=== PATIENT | female | born 2000 | race Caucasian/White ===

== ENCOUNTER 2020-08-04 12:43 | Inpatient (IN) | payer OTHER, SELFPAY ==
[2020-08-04] VITALS (23 sets, daily range): BP systolic 78–101; BP diastolic 45–61; PULSE 74–96; RESP 12–24; TEMP 36.9–37.4; O2SAT 94–100; BMI 22.4
[2020-08-04] MEDS: SODIUM CHLORIDE 0.9% 1,000 ML 250 ML IV (13:04)
[2020-08-04] MEDS: INSULIN DRIP PREMIX 100 UNIT/100 ML PLAST..BAG IV (13:05)
[2020-08-04 13:33] LABS: BUN Creatinine Ratio 15.4 (6-22); Blood Urea Nitrogen 12 mg/dL (7-17); Calcium 8.6 mg/dL (8.4-10.2); Chloride 117 mmol/L (98-107); Estimated Glomerular Filt Rate > 60.0 mL/min (>60); Glucose 257 mg/dL (70-100); HEMOLYSIS < 15 (0-50); Magnesium 2.1 mg/dL (1.6-2.3); Phosphorous 1.9 mg/dL (4.5-5.5); Potassium 4.1 mmol/L (3.4-5.1); Sodium 144 mmol/L (137-145)
[2020-08-04 13:56] LABS: Carbon Dioxide 7 mmol/L (22-32)
[2020-08-04] MEDS: DEXTROSE 5%-0.45% NS 1,000 ML 100 ML IV (13:58)
[2020-08-04 14:00] LABS: Fractionated Inspired Oxygen 21; HCO3 ABG 7 mmol/L (22-26); Oxygen Saturation ABG 98 % (95-100); PCO2 ABG 17.4 mmHg (35-45); PO2 ABG 122 mmHg (80-100); TCO2 ABG 7 mmol/L (21-31); pH ABG 7.19 (7.35-7.45)
--- NOTE | 2020-08-04 14:41 | PC.NURSE ---
Direct admit to rm 226 from [facility] at 1220. Pt is AO. Oriented to room/routine, use of call light. Instructed pt to wait for assistance before getting OOB. Pt's mom is at bedside. Insulin gtt infusing at 3 units/hr. NS bolus started per VORB from hospitalist. Insulin gtt remains at 3 units/hr per VORB from hospitalist. Reviewed labs, IVFs, and insulin with hospitalist and received orders to adjust IVF rate and follow DKA protocol for insulin titration. Unable to draw add'l labs or start another IV on pt. Orders received for PICC placement.
[2020-08-04 16:19] LABS: HCO3 VBG 11 mmol/L (23-28); Oxygen Saturation VBG 72 % (70-75); PCO2 VBG 30.8 mmHg (45-50); PO2 VBG 47 mmHg (35-45); Total CO2 VBG 12 mmol/L (24-29); pH VBG 7.17 (7.33-7.43)
[2020-08-04] MEDS: KCL 40 MEQ IN NS 1,000 ML 250 MEQ IV (16:25)
[2020-08-04] MEDS: INSULIN REGULAR 100 UNIT/ML 3 ML VIAL 6 UNIT IV ×2 (16:52→19:22)
[2020-08-04] MEDS: INSULIN DRIP PREMIX 100 UNIT/100 ML PLAST..BAG 6.1 UNIT IV (17:15)
[2020-08-04 17:19] LABS: Lactate (Lactic Acid) 1.3 mmol/L (0.7-2.1)
[2020-08-04 17:20] LABS: BUN Creatinine Ratio 20.7 (6-22); Blood Urea Nitrogen 12 mg/dL (7-17); Calcium 7.7 mg/dL (8.4-10.2); Carbon Dioxide 11 mmol/L (22-32); Chloride 121 mmol/L (98-107); Estimated Glomerular Filt Rate > 60.0 mL/min (>60); Glucose 257 mg/dL (70-100); HEMOLYSIS 27 (0-50); Phosphorous 1.3 mg/dL (4.5-5.5); Potassium 3.6 mmol/L (3.4-5.1); Sodium 141 mmol/L (137-145)
--- NOTE | 2020-08-04 17:40 | P.HP_ITS ---
History of Present Illness History of Present Illness Date Patient Seen: 08/04/20 Time Patient Seen: 12:00 Chief complaint: DKA Narrative: Ms. Adams is a 20W with no significant PMH who is transferred from [facility] for DKA. She has no known history of diabetes. She noticed that she has been feeling nauseaous and dehydrated for a while and started feeling worse with an episode of vomiting and also passed out earlier today. She had noticed that she was feeling weak, was drinking more fluids, peeing frequently. She had no fevers, sob, cough, abdominal pain, diarrhea. Because of this she came in to the ED at [facility]. There workup was which showed n ofever, heart rate in the 100s-120s, respiratory rate in the 20s, normal blood pressure and normal oxygen saturation. Labs notable for CO2 on chemistries less than assay. Anion gap of at least 24, but not able to be calculated as CO2 on chemistry reported as <10. test negative. Initial blood sugar done >700. Initial VBG showed PH of 6.99. She had urine negative for infection. EKG showed sinus tachycardia. She received IV bolus of insulin and then was started on insulin drip. She was given 3L of IV normal saline. She was transferred as no beds available. Upon arrival to the hospital she was feeling much better. Her initial blood sugar was in the 300s. Her insulin on arrival was 3U/hr. She was placed on DKA protocol. Patient History Family & Social History Family History (Updated 08/04/20 @ 17:50 by Alberto Fisher MD) Grandfather Diabetes mellitus Social History: household members spouse Safety & Behavioral: Feels Safe in Current Yes Environment Been Physically Hurt or No Threatened By a Person Suicidal Ideation Description None Tobacco & Substance use: Smoking Status uses vaporized with nicotine containing substance alcohol intake never Substance Use Type does not use Meds Home Medications and Allergies Home Medications Medication Instructions Recorded Confirmed Type No Known Home Medications 08/04/20 08/04/20 History Allergies Allergy/AdvReac Type Severity Reaction Status Date / Time No Known Drug Allergies Allergy Verified 08/04/20 13:55 Review of Systems Review of Systems Narrative: 14 systems reviewed and negative aside from HPI Exam Vital Signs (past 8 hours): - 08/04/20 12:45 08/04/20 13:20 08/04/20 14:00 Temperature 98.4 F 99.3 F 98.6 F Pulse Rate 85 82 82 Respiratory Rate 16 15 16 Blood Pressure 101/61 97/61 99/59 L Pulse Oximetry 100 100 100 08/04/20 15:00 08/04/20 15:16 08/04/20 15:30 Temperature 99.1 F Pulse Rate 80 78 79 Respiratory Rate 14 13 14 Blood Pressure 94/51 L Pulse Oximetry 99 100 100 08/04/20 16:00 08/04/20 16:01 08/04/20 16:30 Temperature Pulse Rate 82 83 83 Respiratory Rate 14 15 14 Blood Pressure 89/55 L 88/54 L Pulse Oximetry 99 99 08/04/20 17:00 Temperature Pulse Rate 88 Respiratory Rate 13 Blood Pressure 92/55 L Pulse Oximetry 100 Oxygen Delivery Method Room Air Oxygen Flow Rate 0 Narrative Exam Narrative: GEN: no acute distress HEENT: dry mucous membranes, PERRL NECK: no JVD, trachea midline CV: regular rate and rhythm, no murmurs PULM: clear bilaterally, no wheezes, rhonchi, rales ABD: soft, nontender, nondistended, no organomegaly, normal bowel sounds EXT: warm and well perfused, no edema NEURO: awake, alert and oriented, no focal deficits SKIN: no rashes noted PSYCH: pleasant, cooperative Objective Labs Result Diagrams: 08/04/20 17:00 08/04/20 17:00 Labs: Laboratory Results - last 24 hr 08/04/20 08/04/20 08/04/20 13:00 13:04 13:12 ABG pH 7.19 L* ABG pCO2 17.4 L* ABG pO2 122 H ABG HCO3 7 L ABG Total CO2 7 L ABG O2 Saturation 98 ABG Base Excess -22.0 L VBG pH VBG pCO2 VBG pO2 VBG HCO3 VBG Total CO2 VBG O2 Saturation VBG Base Excess FiO2 21 Sodium 144 Potassium 4.1 Chloride 117 H Carbon Dioxide 7 L* BUN 12 Creatinine 0.78 Estimated GFR > 60.0 BUN/Creatinine Ratio 15.4 Glucose 257 H Lactate Calcium 8.6 Phosphorus 1.9 L Magnesium 2.1 Nasal Screen MRSA (PCR) Negative for mrsa 08/04/20 08/04/20 08/04/20 16:05 17:00 17:00 ABG pH ABG pCO2 ABG pO2 ABG HCO3 ABG Total CO2 ABG O2 Saturation ABG Base Excess VBG pH 7.17 L* VBG pCO2 30.8 L VBG pO2 47 H VBG HCO3 11 L VBG Total CO2 12 L VBG O2 Saturation 72 VBG Base Excess -17.0 L FiO2 Sodium 141 Potassium 3.6 Chloride 121 H Carbon Dioxide 11 L BUN 12 Creatinine 0.58 Estimated GFR > 60.0 BUN/Creatinine Ratio 20.7 Glucose 257 H Lactate 1.3 Calcium 7.7 L Phosphorus Magnesium Nasal Screen MRSA (PCR) 08/04/20 17:00 ABG pH ABG pCO2 ABG pO2 ABG HCO3 ABG Total CO2 ABG O2 Saturation ABG Base Excess VBG pH VBG pCO2 VBG pO2 VBG HCO3 VBG Total CO2 VBG O2 Saturation VBG Base Excess FiO2 Sodium Potassium Chloride Carbon Dioxide BUN Creatinine Estimated GFR BUN/Creatinine Ratio Glucose Lactate Calcium Phosphorus 1.3 L Magnesium Nasal Screen MRSA (PCR) Assessment & Plan Assessment & Plan narrative: Ms. Adams is a 20W with no known past medical history who presented with DKA. 1. Diabetic ketoacidosis, acute -initial blood sugar >700, had anion gap >24, co2 less than assay, vbg ph 6.99 -started on insulin, currently on dka protocol for insulin drip -currently volume depleted on 250cc/hr normal saline -plan to follow protocol for potassium repletion, insulin dose adjustment, fluid adjustment -trend vbg and bmp q4 hours while on drip and while still in DKA -dietary consult for new diabetes -midline as patient has poor access DIET: NPO IVF: per DKA protocol DVT ppx: lovenox sc Code: Full, proxy is Juan Lopez her , who is currently in [place], if not able to contact can contact moody ham Quality MIPS - Admit I confirm the patient?s Advance Care Plan is present, Code status is documented, Surrogate decision maker is in patient?s record [If Yes, STOP here]: Yes
[2020-08-04] MEDS: DEXTROSE 10 % IN WATER 1,000 ML 61 ML IV (21:14)
[2020-08-04 21:16] LABS: Blood Urea Nitrogen 12 mg/dL (7-17); Calcium 7.9 mg/dL (8.4-10.2); Carbon Dioxide 14 mmol/L (22-32); Estimated Glomerular Filt Rate > 60.0 mL/min (>60); Glucose 129 mg/dL (70-100); HEMOLYSIS < 15 (0-50); Potassium 3.5 mmol/L (3.4-5.1); Sodium 144 mmol/L (137-145)
[2020-08-04 21:22] LABS: HCO3 VBG 12 mmol/L (23-28); Oxygen Saturation VBG 87 % (70-75); PCO2 VBG 30.9 mmHg (45-50); PO2 VBG 63 mmHg (35-45); Total CO2 VBG 13 mmol/L (24-29)
[2020-08-04 21:23] LABS: pH VBG 7.21 (7.33-7.43)
[2020-08-04 21:35] LABS: Chloride 125 mmol/L (98-107)
[2020-08-04] MEDS: SODIUM CHLORIDE 0.9% FLUSH 10 ML IV (21:53)
[2020-08-04] MEDS: DEXTROSE 5%-0.45% NS 1,000 ML 91.5 ML IV (22:11)
[2020-08-04 22:21] LABS: Phosphorous 0.6 mg/dL (4.5-5.5)
[2020-08-05] VITALS (32 sets, daily range): BP systolic 78–105; BP diastolic 43–68; PULSE 74–93; RESP 13–22; TEMP 36.6–37.2; O2SAT 96–100
[2020-08-05] MEDS: ACETAMINOPHEN 325 MG TABLET 650 MG PO (00:14)
[2020-08-05] MEDS: ONDANSETRON 4 MG/2 ML INJ IV (00:14)
[2020-08-05] MEDS: POTASSIUM PHOSPHATE 10 MMOL in SODIUM CHLORIDE 0.9% 1,000 ML 100 MMOL IV (00:25)
[2020-08-05 01:36] LABS: HCO3 VBG 12 mmol/L (23-28); Oxygen Saturation VBG 74 % (70-75); PO2 VBG 46 mmHg (35-45); Total CO2 VBG 13 mmol/L (24-29); pH VBG 7.22 (7.33-7.43)
[2020-08-05 01:37] LABS: Phosphorous 1.2 mg/dL (4.5-5.5)
[2020-08-05 01:38] LABS: BUN Creatinine Ratio 18.8 (6-22); Blood Urea Nitrogen 12 mg/dL (7-17); Calcium 8.1 mg/dL (8.4-10.2); Carbon Dioxide 12 mmol/L (22-32); Chloride 121 mmol/L (98-107); Estimated Glomerular Filt Rate > 60.0 mL/min (>60); Glucose 149 mg/dL (70-100); HEMOLYSIS < 15 (0-50); Potassium 3.5 mmol/L (3.4-5.1); Sodium 141 mmol/L (137-145)
[2020-08-05 05:30] LABS: Blood Urea Nitrogen 12 mg/dL (7-17); Carbon Dioxide 11 mmol/L (22-32); Chloride 120 mmol/L (98-107); Estimated Glomerular Filt Rate > 60.0 mL/min (>60); Glucose 234 mg/dL (70-100); HEMOLYSIS < 15 (0-50); Sodium 139 mmol/L (137-145)
[2020-08-05 05:31] LABS: Phosphorous 2.1 mg/dL (4.5-5.5)
[2020-08-05 06:21] LABS: Add Manual Diff / Slide Review NO; Basophils Absolute Auto 0 /uL (0-100); Basophils Percent Auto 0.3 % (0-2); Eosinophils Absolute Auto 100 /uL (0-450); Eosinophils Percent Auto 0.7 % (2-4); Hematocrit 32.5 % (36-46); Lymphocytes Absolute Auto 2000 /uL (1100-4500); Mean Corpuscular Hemoglobin 31.9 PG (26-34); Mean Corpuscular Volume 93.7 fL (80-100); Monocytes Absolute Auto 600 /uL (0-900); Monocytes Percent Auto 6.7 % (3-14); Neutrophils Absolute Auto 5800 /uL (1500-7000); Neutrophils Percent Auto 68.3 % (50-75); Platelet Count 162 X10^3/uL (150-400); Red Blood Cell Count 3.46 X10^6/uL (4.0-5.2); Red Cell Distribution Width 14.6 % (11.6-14.8); White Blood Cell Count 8.5 X10^3/uL (4.5-11.0)
[2020-08-05 06:42] LABS: HCO3 VBG 12 mmol/L (23-28); Oxygen Saturation VBG 78 % (70-75); PCO2 VBG 30.4 mmHg (45-50); PO2 VBG 51 mmHg (35-45); Total CO2 VBG 12 mmol/L (24-29); pH VBG 7.19 (7.33-7.43)
[2020-08-05] MEDS: DEXTROSE 5%-0.45% NS 1,000 ML 91.5 ML IV ×3 (06:48→16:47)
[2020-08-05 07:02] LABS: Hemoglobin A1C% w Est Avg Glu 12.6 % (4.0-6.0)
[2020-08-05 09:33] LABS: BUN Creatinine Ratio 17.2 (6-22); Blood Urea Nitrogen 10 mg/dL (7-17); Carbon Dioxide 14 mmol/L (22-32); Chloride 121 mmol/L (98-107); Estimated Glomerular Filt Rate > 60.0 mL/min (>60); Glucose 191 mg/dL (70-100); HEMOLYSIS < 15 (0-50); Potassium 3.4 mmol/L (3.4-5.1); Sodium 139 mmol/L (137-145)
[2020-08-05] MEDS: POTASSIUM CHLORIDE IN WATER 10 MEQ/100 ML PIGGYBACK 100 MEQ IV ×7 (10:26→22:57)
[2020-08-05 10:27] LABS: PCO2 VBG 27.5 mmHg (45-50); PO2 VBG 43 mmHg (35-45); pH VBG 7.28 (7.33-7.43)
[2020-08-05] MEDS: ENOXAPARIN 40 MG/0.4 ML SYRINGE SUBCUT (10:27)
[2020-08-05] MEDS: SODIUM CHLORIDE 0.9% FLUSH 10 ML IV ×2 (10:27→22:57)
[2020-08-05 10:28] LABS: Oxygen Saturation VBG 74 % (70-75)
[2020-08-05 10:30] LABS: HCO3 VBG 13 mmol/L (23-28)
[2020-08-05] MEDS: INSULIN DRIP PREMIX 100 UNIT/100 ML PLAST..BAG 6.1 UNIT IV (12:31)
--- NOTE | 2020-08-05 13:48 | CM.DANOTE ---
DCP ASSESSMENT: Patient is a 20 year-old female admitted for DKA. PCP doctors are at [facility]. Primary payer is [employer] [facility]. CORRESPONDENCE SECTION SUPERVISOR Student met with patient at bedside she was alert and oriented. Her Juan Lopez was present also. Educated patient of social work role in discharge planning. Patient is independent at baseline. She and her are in the area for a vacation at his grandmother?s house. will provide transportation at time of D/C. PLAN: Anticipate home when medically stable. CM Team to continue to follow. HIEU Sanz MSW Student Discharge Planning/Care Management CM Discharge Assessment Start: 08/05/20 10:44 Freq: Status: Active Protocol: Document 08/05/20 10:44 AL (Rec: 08/05/20 10:46 AL [id number]) Discharge Planning Assessment Assigned Biologics Specialist HIEU Zapata Student Contact Information Juan Lopez, [phone] Advance Directives? No History Provided By Patient,Medical Record Has Patient been admitted in last 30 No days? Prior Living Arrangements Apartment/Condo Household Members spouse Type of transporation used prior to Drives own vehicle admit Independent with ADL's Yes Is patient alert and oriented? Yes Caregiver for Another No Barriers to Discharge No Discharge Plan Home Transportation Arrangement Juan Lopez will provide transportation at time of D/C Referrals Initiated None needed Whiteboard Updated in Patient Room with Yes name and ext. # of Biologics Specialist Review Status In Process
[2020-08-05 14:55] LABS: BUN Creatinine Ratio 12.7 (6-22); Blood Urea Nitrogen 8 mg/dL (7-17); Calcium 8.2 mg/dL (8.4-10.2); Carbon Dioxide 12 mmol/L (22-32); Chloride 116 mmol/L (98-107); Estimated Glomerular Filt Rate > 60.0 mL/min (>60); Glucose 275 mg/dL (70-100); HEMOLYSIS < 15 (0-50); Potassium 4.4 mmol/L (3.4-5.1); Sodium 135 mmol/L (137-145)
[2020-08-05] MEDS: SODIUM CHLORIDE 0.9% 1,000 ML 100 ML IV (15:00)
--- NOTE | 2020-08-05 15:55 | PM.PN.1 ---
Subjective Subjective Date Patient Seen: 08/05/20 Time Patient Seen: 13:30 Interval history: this is a 20-year-old female admitted with a new diagnosis of diabetes and diabetic ketoacidosis. She remains acidotic today, although her gap has closed but her bicarb remains low. Her bicarb had improved to 14, however repeat check after showed a decline to 12. Her insulin infusion may have been leaking, her blood glucose also peaked. She was quite hungry and was given a no carbohydrate diet While on insulin infusion. She will remain on insulin infusion, until her bicarb is consistently above 16. She had some foul-smelling urine, urinalysis was negative on admission the patient has no dysuria or urinary frequency. She denies any vaginal bleeding or discharge, she has had no fever, chest pain, shortness of breath, cough, abdominal pain, nausea, or vomiting. Exam Vital Signs (past 8 hours): - 08/05/20 08:00 08/05/20 08:55 08/05/20 09:00 Temperature 98.4 F 98.3 F Pulse Rate 83 76 86 Respiratory Rate 16 14 15 Blood Pressure 90/52 L 96/52 L Pulse Oximetry 96 08/05/20 09:55 08/05/20 10:00 08/05/20 11:00 Temperature 98.2 F 97.8 F Pulse Rate 77 74 84 Respiratory Rate 14 13 16 Blood Pressure 89/55 L 86/52 L Pulse Oximetry 100 100 100 08/05/20 12:00 08/05/20 13:00 08/05/20 14:00 Temperature 98.9 F 98.8 F 98.7 F Pulse Rate 79 81 82 Respiratory Rate 18 18 16 Blood Pressure 90/48 L 98/58 L 92/56 L Pulse Oximetry 97 100 100 Oxygen Delivery Method Room Air Oxygen Flow Rate 0 Narrative Exam Narrative: GEN: no acute distress HEENT: dry mucous membranes, PERRL NECK: no JVD, trachea midline CV: regular rate and rhythm, no murmurs PULM: clear bilaterally, no wheezes, rhonchi, rales ABD: soft, nontender, nondistended, no organomegaly, normal bowel sounds EXT: warm and well perfused, no edema NEURO: awake, alert and oriented, no focal deficits SKIN: no rashes noted PSYCH: pleasant, cooperative Objective Labs Result Diagrams: 08/05/20 05:00 08/05/20 14:30 Labs: Laboratory Results - last 24 hr 08/04/20 08/04/20 08/04/20 16:05 17:00 17:00 WBC RBC Hgb Hct MCV MCH MCHC RDW Plt Count Neut % (Auto) Lymph % (Auto) Kay % (Auto) Eos % (Auto) Baso % (Auto) Neut # (Auto) Lymph # (Auto) Kay # (Auto) Eos # (Auto) Baso # (Auto) VBG pH 7.17 L* VBG pCO2 30.8 L VBG pO2 47 H VBG HCO3 11 L VBG Total CO2 12 L VBG O2 Saturation 72 VBG Base Excess -17.0 L Sodium 141 Potassium 3.6 Chloride 121 H Carbon Dioxide 11 L BUN 12 Creatinine 0.58 Estimated GFR > 60.0 BUN/Creatinine Ratio 20.7 Glucose 257 H Hemoglobin A1c Lactate 1.3 Calcium 7.7 L Phosphorus 08/04/20 08/04/20 08/04/20 17:00 20:59 21:00 WBC RBC Hgb Hct MCV MCH MCHC RDW Plt Count Neut % (Auto) Lymph % (Auto) Kay % (Auto) Eos % (Auto) Baso % (Auto) Neut # (Auto) Lymph # (Auto) Kay # (Auto) Eos # (Auto) Baso # (Auto) VBG pH 7.21 L VBG pCO2 30.9 L VBG pO2 63 H VBG HCO3 12 L VBG Total CO2 13 L VBG O2 Saturation 87 H VBG Base Excess -16.0 L Sodium 144 Potassium 3.5 Chloride 125 H* Carbon Dioxide 14 L BUN 12 Creatinine 0.60 Estimated GFR > 60.0 BUN/Creatinine Ratio 20.0 Glucose 129 H D Hemoglobin A1c Lactate Calcium 7.9 L Phosphorus 1.3 L 0.6 L* 08/05/20 08/05/20 08/05/20 01:20 01:20 01:20 WBC RBC Hgb Hct MCV MCH MCHC RDW Plt Count Neut % (Auto) Lymph % (Auto) Kay % (Auto) Eos % (Auto) Baso % (Auto) Neut # (Auto) Lymph # (Auto) Kay # (Auto) Eos # (Auto) Baso # (Auto) VBG pH 7.22 L VBG pCO2 29.0 L VBG pO2 46 H VBG HCO3 12 L VBG Total CO2 13 L VBG O2 Saturation 74 VBG Base Excess -16.0 L Sodium 141 Potassium 3.5 Chloride 121 H Carbon Dioxide 12 L BUN 12 Creatinine 0.64 Estimated GFR > 60.0 BUN/Creatinine Ratio 18.8 Glucose 149 H Hemoglobin A1c Lactate Calcium 8.1 L Phosphorus 1.2 L 08/05/20 08/05/20 08/05/20 05:00 05:00 05:00 WBC 8.5 RBC 3.46 L Hgb 11.0 L Hct 32.5 L MCV 93.7 MCH 31.9 MCHC 34.0 RDW 14.6 Plt Count 162 Neut % (Auto) 68.3 Lymph % (Auto) 24.0 L Kay % (Auto) 6.7 Eos % (Auto) 0.7 L Baso % (Auto) 0.3 Neut # (Auto) 5800 Lymph # (Auto) 2000 Kay # (Auto) 600 Eos # (Auto) 100 Baso # (Auto) 0 VBG pH VBG pCO2 VBG pO2 VBG HCO3 VBG Total CO2 VBG O2 Saturation VBG Base Excess Sodium 139 Potassium 4.0 Chloride 120 H Carbon Dioxide 11 L BUN 12 Creatinine 0.63 Estimated GFR > 60.0 BUN/Creatinine Ratio 19.0 Glucose 234 H Hemoglobin A1c Lactate Calcium 8.0 L Phosphorus 2.1 L 08/05/20 08/05/20 08/05/20 05:00 05:05 09:10 WBC RBC Hgb Hct MCV MCH MCHC RDW Plt Count Neut % (Auto) Lymph % (Auto) Kay % (Auto) Eos % (Auto) Baso % (Auto) Neut # (Auto) Lymph # (Auto) Kay # (Auto) Eos # (Auto) Baso # (Auto) VBG pH 7.19 L* VBG pCO2 30.4 L VBG pO2 51 H VBG HCO3 12 L VBG Total CO2 12 L VBG O2 Saturation 78 H VBG Base Excess -17.0 L Sodium 139 Potassium 3.4 Chloride 121 H Carbon Dioxide 14 L BUN 10 Creatinine 0.58 Estimated GFR > 60.0 BUN/Creatinine Ratio 17.2 Glucose 191 H Hemoglobin A1c 12.6 H Lactate Calcium 8.0 L Phosphorus 08/05/20 08/05/20 10:12 14:30 WBC RBC Hgb Hct MCV MCH MCHC RDW Plt Count Neut % (Auto) Lymph % (Auto) Kay % (Auto) Eos % (Auto) Baso % (Auto) Neut # (Auto) Lymph # (Auto) Kay # (Auto) Eos # (Auto) Baso # (Auto) VBG pH 7.28 L VBG pCO2 27.5 L VBG pO2 43 VBG HCO3 13 L VBG Total CO2 13 L VBG O2 Saturation 74 VBG Base Excess -14.0 L Sodium 135 L Potassium 4.4 Chloride 116 H Carbon Dioxide 12 L BUN 8 Creatinine 0.63 Estimated GFR > 60.0 BUN/Creatinine Ratio 12.7 Glucose 275 H Hemoglobin A1c Lactate Calcium 8.2 L Phosphorus [facility] Family History (Updated 08/04/20 @ 17:50 by Alberto Fisher MD) Grandfather Diabetes mellitus Social History household members: spouse Smoking Status: Never smoker alcohol intake: never Assessment & Plan Assessment & Plan narrative: Ms. Adams is a 20F with no known past medical history who presented with DKA. 1. Diabetic ketoacidosis, acute -initial blood sugar >700, had anion gap >24, co2 less than assay, vbg ph 6.99 -started on insulin, currently on dka protocol for insulin drip, nearing resolution but with current NAGMA likely due improving DKA. -continue fluids and insulin infusion until bicarb > 16. -plan to follow protocol for potassium repletion, insulin dose adjustment, fluid adjustment -trend vbg and bmp q4 hours while on drip and while still in DKA -dietary consult for new diabetes -midline as patient has poor access -A1c 12.6%. possibly new type 1, will discharge on basal bolus therapy. -STOCK BROKER consultation as patient is in the and will assist with community resources. DIET: No carbohydrate diet IVF: per DKA protocol DVT ppx: lovenox sc Code: Full, proxy is Juan Lopez her , who is currently in [place], if not able to contact can contact moody ham I spent 35 minutes providing critical care management this patient. This excludes time spent in performing separately billed procedures.
[2020-08-05] MEDS: DEXTROSE 5%-0.45% NS 1,000 ML 125 ML IV (18:55)
--- NOTE | 2020-08-05 19:03 | PC.NURSE ---
Evening Shift Note: Pt is alert and oriented, denies pain. Pt is on RA, SPO2 99%. Denies SOB. Lungs CTA. Pt with VSS, pt reports that her hands and feet are swollen, mild generalized edema. Pt denies nausea, tolerating no carb diet. BG 148 at last check. Pt remainson insulin gtts, initially at 9.1 units/hr, then at 6.1 units/hr thereafter. Dr. Ferrara wished to keep pt's insulin gtts running at 6.1 units/hr and increase dextrose IV to compensate. Will recheck BG q 1 hour per protocol and check in with MD if needed for further instruction re insulin gtts. Call light within reach, pt using appropriately for assistance. Will continue to monitor, notify MD with changes.
[2020-08-05 21:11] LABS: BUN Creatinine Ratio 21.7 (6-22); Blood Urea Nitrogen 15 mg/dL (7-17); Calcium 8.1 mg/dL (8.4-10.2); Carbon Dioxide 18 mmol/L (22-32); Chloride 113 mmol/L (98-107); Estimated Glomerular Filt Rate > 60.0 mL/min (>60); Glucose 107 mg/dL (70-100); HEMOLYSIS < 15 (0-50); Potassium 3.2 mmol/L (3.4-5.1); Sodium 135 mmol/L (137-145)
[2020-08-06] VITALS (19 sets, daily range): BP systolic 90–111; BP diastolic 56–65; PULSE 73–92; RESP 10–82; TEMP 36.1–37.4; O2SAT 91–100
[2020-08-06] MEDS: POTASSIUM CHLORIDE IN WATER 10 MEQ/100 ML PIGGYBACK 100 MEQ IV ×9 (00:08→13:00)
[2020-08-06 00:35] LABS: BUN Creatinine Ratio 23.6 (6-22); Blood Urea Nitrogen 13 mg/dL (7-17); Carbon Dioxide 20 mmol/L (22-32); Chloride 111 mmol/L (98-107); Estimated Glomerular Filt Rate > 60.0 mL/min (>60); Glucose 115 mg/dL (70-100); HEMOLYSIS < 15 (0-50); Potassium 3.1 mmol/L (3.4-5.1); Sodium 134 mmol/L (137-145)
[2020-08-06 05:21] LABS: HCO3 VBG 20 mmol/L (23-28); Oxygen Saturation VBG 60 % (70-75); PCO2 VBG 37.1 mmHg (45-50); PO2 VBG 33 mmHg (35-45); Total CO2 VBG 21 mmol/L (24-29); pH VBG 7.34 (7.33-7.43)
[2020-08-06 05:27] LABS: Blood Urea Nitrogen 10 mg/dL (7-17); Calcium 8.4 mg/dL (8.4-10.2); Carbon Dioxide 21 mmol/L (22-32); Chloride 111 mmol/L (98-107); Estimated Glomerular Filt Rate > 60.0 mL/min (>60); Glucose 143 mg/dL (70-100); HEMOLYSIS < 15 (0-50); Potassium 3.2 mmol/L (3.4-5.1); Sodium 135 mmol/L (137-145)
[2020-08-06 06:17] LABS: Albumin 2.5 g/dL (3.5-5.0)
[2020-08-06] MEDS: POTASSIUM CHLORIDE 20 MEQ TAB 40 MEQ PO (06:35)
--- NOTE | 2020-08-06 07:35 | PC.NURSE ---
Help Desk Administrator Note-Patient has on insulin gtt throughout the night, rate 1.2-4.8, CBG 125-173, see flow sheet. SR, VSS, denies pain or nausea. 40meq K+ rider overnight, D5 1/2NS @ 125ml/hr.
[2020-08-06] MEDS: INSULIN GLARGINE 100 UNIT/ML 3ML PEN 25 UNIT SUBCUT (08:14)
[2020-08-06] MEDS: INSULIN LISPRO 100 UNIT/ML 3ML VIAL SUBCUT ×4 (08:18→17:19)
[2020-08-06] MEDS: SODIUM CHLORIDE 0.9% FLUSH 10 ML IV ×2 (08:32→21:37)
--- NOTE | 2020-08-06 12:53 | DIET.PN ---
Dietary Progress Note Assessment: 20y F admitted for DKA as transfer from [facility] referred to nutrition for inpatient Diabetes nutrition education. HT: 165.1cm WT: 61kg BMI: 22.4 Labs: admit BG >700, A1c 12.6, VBG pH 6.99, Anion Gap 24 Nutrition Diagnosis: altered nutrition related laboratory values r/t endocrine dysfunction aeb pt admitted c DKA and no known hx Diabetes c admit BG >700, A1c 12.6, VBG pH 6.99, anion gap 24. Interventions: 1. Educated pt on BG, A1c, how the tests are preformed and what they mean using drawn diagram and answering pt questions. 2. Using DSME book 1, educated pt on sx of hypo and hyperglycemia, educated on carbohydrate content of foods and carb counting with examples. 3. Using patient menu, discussed carb counts of a variety of options and how to modify meals to fit within carb levels. Diet Order: CCD3 EER: 30-45g CHO per meal, 15-30g CHO for snacks Monitoring/Evaluations: f/u teaching this afternoon
--- NOTE | 2020-08-06 16:04 | CM.DPC ---
DCP Continued: HIEU Student met with patient and at bedside in am. Patient is aware of her new diabetes diagnosis. 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 Inquired if she would like any other assistance at this time. She and her feel they are doing okay at this time and also, have family supports. PLAN: Anticipate D/C home. CM Team to continue to follow. HIEU Sanz MSW Student
--- NOTE | 2020-08-06 17:02 | P.PN_ITS ---
Subjective Subjective Date Patient Seen: 08/06/20 Time Patient Seen: 17:03 Interval history: This is a 20-year-old female admitted with diabetic ketoacidosis. She was taken off of her insulin infusion this morning, and started on basal and mealtime insulin today. She has only had 2 blood sugar since being taken off of her insulin infusion. She denies any chest pain, shortness of breath, abdominal pain, nausea, vomiting. She is tolerating a diet. Exam Vital Signs (past 8 hours): - 08/06/20 09:30 08/06/20 12:00 08/06/20 15:38 Temperature 97.9 F 98.2 F Pulse Rate 92 H 76 Respiratory Rate 17 17 82 H Blood Pressure 93/63 106/65 Pulse Oximetry 99 99 99 Oxygen Delivery Method Room Air Oxygen Flow Rate 0 Narrative Exam Narrative: GEN: no acute distress HEENT: MMM, PERRL NECK: no JVD, trachea midline CV: regular rate and rhythm, no murmurs PULM: clear bilaterally, no wheezes, rhonchi, rales ABD: soft, nontender, nondistended, no organomegaly, normal bowel sounds EXT: warm and well perfused, no edema NEURO: awake, alert and oriented, no focal deficits SKIN: no rashes noted PSYCH: pleasant, cooperative Objective Labs Result Diagrams: 08/05/20 05:00 08/06/20 05:00 Labs: Laboratory Results - last 24 hr 08/05/20 08/06/20 08/06/20 20:00 00:15 05:00 VBG pH VBG pCO2 VBG pO2 VBG HCO3 VBG Total CO2 VBG O2 Saturation VBG Base Excess Sodium 135 L 134 L 135 L Potassium 3.2 L D 3.1 L 3.2 L Chloride 113 H 111 H 111 H Carbon Dioxide 18 L 20 L 21 L BUN 15 13 10 Creatinine 0.69 0.55 0.50 L Estimated GFR > 60.0 > 60.0 > 60.0 BUN/Creatinine Ratio 21.7 23.6 H 20.0 Glucose 107 H D 115 H 143 H Calcium 8.1 L 8.0 L 8.4 Albumin 08/06/20 08/06/20 05:00 05:08 VBG pH 7.34 VBG pCO2 37.1 L VBG pO2 33 L VBG HCO3 20 L VBG Total CO2 21 L VBG O2 Saturation 60 L VBG Base Excess -6.0 L Sodium Potassium Chloride Carbon Dioxide BUN Creatinine Estimated GFR BUN/Creatinine Ratio Glucose Calcium Albumin 2.5 L PFSH Family History (Updated 08/04/20 @ 17:50 by Alberto Fisher MD) Grandfather Diabetes mellitus Social History household members: spouse Smoking Status: Never smoker alcohol intake: never Assessment & Plan Assessment & Plan narrative: Ms. Adams is a 20F with no known past medical history who presented with DKA. 1. Diabetic ketoacidosis, acute, likely type I new diagnosis. -initial blood sugar >700, had anion gap >24, co2 less than assay, vbg ph 6.99 -started on insulin infusion, had prolonged NAGMA delaying cessation of insulin infusion until this AM, HD#2. -now on a diet, started on lantus 25 U daily with 5 U AC and medium sliding scale. Will need to adjust further. -dietary consult for new diabetes -midline placed as patient has poor access -A1c 12.6%. possibly new type 1, less likely type 2 at this time but not impossible, will discharge on basal bolus therapy. 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 -TRANSPORTATION MAINTENANCE SUPERVISOR consultation as patient is in the and will assist with community resources. DIET: consistenet carbohydrate diet IVF: now discontinued DVT ppx: lovenox sc Code: Full, proxy is Juan Lopez her , who is currently in [place], if not able to contact can contact moody Duong jitendra\ Dispo: probable discharge home tomorrow if sugars controlled on basal bolus therapy. Patient will follow up in [place] with PCP and recommend endocrine referral. She can be listed for regular floor today. I spent 35 minutes providing critical care management this patient. This excludes time spent in performing separately billed procedures.
[2020-08-06 20:26] LABS: Total CO2 VBG 14 mmol/L (24-29)
[2020-08-07 05:00] VITALS: BP 103/52; PULSE 76; RESP 15; TEMP 36.4; O2SAT 98
[2020-08-07] MEDS: INSULIN GLARGINE 100 UNIT/ML 3ML PEN 25 UNIT SUBCUT (08:57)
[2020-08-07] MEDS: INSULIN LISPRO 100 UNIT/ML 3ML VIAL SUBCUT ×2 (08:58)
--- NOTE | 2020-08-07 08:59 | PM.DS.1 ---
History of Present Illness History of Present Illness Date Patient Seen: 08/07/20 Time Patient Seen: 09:00 Chief complaint: DKA Narrative: Ms. Adams is a 20W with no significant PMH who is transferred from [facility] for DKA. She has no known history of diabetes. She noticed that she has been feeling nauseaous and dehydrated for a while and started feeling worse with an episode of vomiting and also passed out earlier today. She had noticed that she was feeling weak, was drinking more fluids, peeing frequently. She had no fevers, sob, cough, abdominal pain, diarrhea. Because of this she came in to the ED at [facility]. There workup was which showed n ofever, heart rate in the 100s-120s, respiratory rate in the 20s, normal blood pressure and normal oxygen saturation. Labs notable for CO2 on chemistries less than assay. Anion gap of at least 24, but not able to be calculated as CO2 on chemistry reported as <10. test negative. Initial blood sugar done >700. Initial VBG showed PH of 6.99. She had urine negative for infection. EKG showed sinus tachycardia. She received IV bolus of insulin and then was started on insulin drip. She was given 3L of IV normal saline. She was transferred as no beds available. Upon arrival to the hospital she was feeling much better. Her initial blood sugar was in the 300s. Her insulin on arrival was 3U/hr. She was placed on DKA protocol. Discharge Providers Provider Date of admission: 08/04/20 12:43 Discharge Date: 08/07/20 Consults: 08/04/20 18:00 Consult to Dietitian, Adult Routine Comment: Reason For Exam: new diagnosis of diabetes, DKA 08/05/20 13:55 [place] [facility] [place]ine [place] [facility] [place] [facility] Need Discharge provider: Stephen Ferrara DO Summary Hospital Course Discharge Diagnosis: 1. Diabetic ketoacidosis, acute, likely type I new diagnosis. Hospital Course: Ms. Adams is a 20F with no known past medical history who presented with DKA. Her initial blood sugar was over 700 she had an anion gap of greater than 24, and a bicarb less than assay with a pH of 6.99. She was started on an insulin infusion, but had a prolonged non anion gap metabolic acidosis after resolution of her anion gap which delayed cessation of her insulin infusion until hospital day 2. She was then started on basal bolus therapy with blood sugars generally between 102 100. Her Lantus was increased to 30 units in the morning with 5 units at meals on the day of discharge. She will need further adjustment with a primary care provider as soon as possible. Her A1c was 12.6. MYKE 65 and islet cell antibodies were sent as the diagnosis is not exactly clear and her job as an [employer] will depend on if she is insulin dependent or not, though this is likely type 1 diabetes based on presentation. 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 Patient was tolerating a diet and her sugars were controlled on the day of discharge. She is highly recommended to follow-up with her primary care provider as soon as possible closer to her home in [place]. Time Spent with Patient Time spent: Greater than 30 minutes Exam Vital Signs (past 8 hours): - 08/07/20 05:00 Temperature 97.5 F L Pulse Rate 76 Respiratory Rate 15 Blood Pressure 103/52 L Pulse Oximetry 98 Oxygen Delivery Method Room Air Oxygen Flow Rate 0 Narrative Exam Narrative: GEN: no acute distress HEENT: MMM, PERRL NECK: no JVD, trachea midline CV: regular rate and rhythm, no murmurs PULM: clear bilaterally, no wheezes, rhonchi, rales ABD: soft, nontender, nondistended, no organomegaly, normal bowel sounds EXT: warm and well perfused, no edema NEURO: awake, alert and oriented, no focal deficits SKIN: no rashes noted PSYCH: pleasant, cooperative Objective Labs Result Diagrams: 08/05/20 05:00 08/06/20 05:00 Labs: Laboratory Results - last 24 hr 08/05/20 10:12 VBG Total CO2 14 L PFSH Family History (Updated 08/04/20 @ 17:50 by Alberto Fisher MD) Grandfather Diabetes mellitus Social History household members: spouse Smoking Status: Never smoker alcohol intake: never Discharge Plan Discharge Plan Patient Disposition: Home Provider Discharge Comment: You were admitted to the hospital with diabetic ketoacidosis. This happens when your body lacks insulin. You probably have type 1 diabetes, antibodies were sent but this can take some time to return. Please follow up with your PCP as soon as possible, ideally before the end of the week. Please keep a log of your blood sugars, try to test in the AM, before each meal, and before bed to help titrate your insulin. If your blood sugar is over 300 please take an additional 5 units of short acting insulin to try and decrease. Discharge orders & Medications Prescriptions: New insulin glargine 100 unit/mL (3 mL) insulin pen 30 unit SUBCUT QAM 30 Days Qty: 9 RF: 0 insulin lispro 100 unit/mL insulin pen 5 unit SUBCUT TID 30 Days Qty: 9 RF: 0 (DME) pen needle, diabetic [Pen Needle] 31 gauge x 3/16 needle See Rx Instructions .Route Qty: 200 RF: 0 (DME) blood-glucose meter Kit See Rx Instructions .Route Qty: 1 RF: 0 (DME) Blood Glucose Test Strip See Rx Instructions .Route Qty: 200 RF: 0 (DME) lancets 31 gauge misc See Rx Instructions .Route Qty: 100 RF: 0 Glucagon Emergency Kit (human) 1 mg recon soln 1 mg IM Q20M PRN (Reason: hypoglycemia) 30 Days Qty: 1 RF: 0 Medication counseling provided by Pharmacist: Yes Pharmacist Comment: Went over her insulin regimen again. Discussed how to manage hypoglycemia. Stressed the importance of establishing a PCP and [place] clinic. Diet/Activity/Treatments Diet: Diet as Tolerated and Carb-consistent/Diabetic Activity: As tolerated Visit Report/Discharge Packet Instructions: How to Check Your Blood Glucose, Learn Your Diabetic ABCs, Low Glycemic Index Diets (Alternative Therapy), Low-Carbohydrate Diet (Alternative Therapy), Type 1 Diabetes, DI for Diabetes Type 1 -- Adult, How to Use an Insulin Pen
[2020-08-07] MEDS: ENOXAPARIN 40 MG/0.4 ML SYRINGE SUBCUT (09:00)
[2020-08-07] MEDS: SODIUM CHLORIDE 0.9% FLUSH 10 ML IV (09:00)
[2020-08-07 09:10] VITALS: BP 116/69; PULSE 83; RESP 16; TEMP 37.3; O2SAT 98
--- NOTE | 2020-08-07 11:10 | PC.NURSE ---
Patient educated about signs and symptoms of altered glucose metabolism, how to check blood sugars, how to use insulin pens, when to follow up with primary care doctor, diet, activity, exercise, and what to do with high in case of high blood sugars as well as low blood sugars. Patient verbalized understanding of all discharge instructions and questions were answered. Patient prescriptions were electronically sent to pharmacy and patient left facility via significant other with all belongings.
[2020-08-09 13:36] LABS: Antipancreatic Islet Cells Negative (Neg:<1:1); GAD-65 Antibody <5.0 U/mL (0.0-5.0)
== END 2020-08-07 11:10 | disposition home or self-care (01) | DRG 639 ==
LOC: ICU 08-06 08:28 → AC 08-06 20:23
PROVIDERS: Internal Medicine; Nurse Practitioner Family; Admitting Provider Internal Medicine; Referring Provider Internal Medicine; Visit Provider Internal Medicine
DX: E10.10 Type 1 diabetes mellitus with ketoacidosis without coma (principal)
CPT/HCPCS: 36415; 36569; 36592; 36600; 80048; 82040; 82805; 82962; 83036; 83605; 83735; 84100; 85025; 86341; 87797; J1642; J1650; J1815; J2405; J3480